=== PATIENT | male | born 1960 | race Caucasian/White ===

== ENCOUNTER → 2023-01-25 | Outpatient (CLI) | payer BC ==
[2023-01-25 21:37] LABS: Basophils # (A) 0.08 X 10*3/uL (0.00-0.10); Basophils % (A) 0.8 %; Eosinophils # (A) 0.25 X 10*3/uL (0.04-0.35); Eosinophils % (A) 2.5 %; HGB 14.3 g/dL (13.0-17.0); Immature Grans, Automated 0.9 %; Lymphocytes # (A) 1.92 X 10*3/uL (0.90-5.00); Lymphocytes % (A) 19.4 %; MCH 29.9 pg (27.0-32.0); MCHC 31.1 g/dL (32.0-37.0); MCV 96.2 fL (80.0-97.0); Mean Platelet Volume 11.5 fL (9.5-12.2); Monocytes # (A) 0.88 X 10*3/uL (0.20-1.00); Monocytes % (A) 8.9 %; NRBC Per 100 WBC 0 /100 WBCS (0.0-0.0); Neutrophils % (A) 67.5 %; Platelet Count 223 X 10*3/uL (140-440); RBC 4.78 X 10*6/uL (4.40-5.60); RDW 14.4 % (11.5-14.5); WBC 9.92 X 10*3/uL (4.50-10.00)
[2023-01-26 00:43] LABS: % Iron Saturation 27.1 (15.00-50.00); Phosphorus 2.8 mg/dL (2.4-5.1); Uric Acid 4.7 mg/dL (3.7-8.7)
[2023-01-26 01:54] LABS: African American GFR (CKD) 24.7 (60.0-200.0); Anion Gap 12.8 mmol/L (10.00-18.00); BUN/Creat Ratio 12.23 Ratio (12.00-20.00); Blood Urea Nitrogen 36.7 mg/dL (9.0-27.0); Calcium 9.1 mg/dL (8.7-10.3); Carbon Dioxide 12.2 mmol/L (20.0-27.5); Non-African American GFR(CKD) 21.3 (60.0-200.0); Potassium 4.5 mmol/L (3.5-5.5)
[2023-01-26 05:35] LABS: Urine Creatinine 45.1 mg/dL (39.0-259.0)
== END | disposition home or self-care (01) ==
LOC: LABWHC1 13:54
PROVIDERS: ATTEND Internal Medicine
DX: N18.4 Chronic kidney disease, stage 4 (severe) (principal); N25.81 Secondary hyperparathyroidism of renal origin
CPT/HCPCS: 36415; 80048; 82043; 82306; 82570; 82728; 83540; 83550; 83735; 83970; 84100; 84550; 85025

== ENCOUNTER → 2024-07-03 | Outpatient (CLI) | payer OTHER ==
--- NOTE | 2024-07-03 12:45 | XR ---
EXAMINATION TYPE: XR KUB DATE OF EXAM: 07/03/2024 COMPARISON: None HISTORY: Dysuria and intercostal pain left flank pain x4 months TECHNIQUE: AP abdomen FINDINGS: There is a 0.7 cm calcification at the inferior pole left kidney. Correlate for renal stone Normal colonic bowel gas is present. Psoas margins are normal. There is a density in the right lower quadrant measuring 1.1 cm. An appendicolith is not excluded. This could be within fecal debris. Osseous structures are normal. No organomegaly is evident. IMPRESSION: 1. Suspected 0.7 cm inferior pole left renal stone. 2. Appendicolith is not excluded. [facility], , 07/03/2024 12:43 PM
--- NOTE | 2024-07-03 15:19 | XR ---
EXAMINATION TYPE: XR ribs LT w pa chest xray DATE OF EXAM: 07/03/2024 COMPARISON: None HISTORY: Left flank pain, feeling of lump TECHNIQUE: Left RIBS examined in 2 projections. Exam supplemented with AP chest FINDINGS: No acute displaced rib fractures evident. No bony expansion is identified. No suspicious marisa ng findings as visualized study. Heart size is normal. Pulmonary vasculature is normal. Lungs appear clear. No pneumothorax is evident . IMPRESSION: 1. Unremarkable left rib series. 2. No suspicious abnormality to correlate with the patient's palpable finding. [facility], , 07/03/2024 3:17 PM
== END | disposition home or self-care (01) ==
LOC: RADXRYALE 10:36
PROVIDERS: ATTEND Internal Medicine
DX: R30.0 Dysuria (principal); R07.82 Intercostal pain
CPT/HCPCS: 74018

== ENCOUNTER → 2024-07-31 | Outpatient (CLI) | payer OTHER ==
[2024-07-31 15:51] LABS: Basophils # (A) 0.09 X 10*3/uL (0.00-0.10); Basophils % (A) 0.8 %; Eosinophils # (A) 0.37 X 10*3/uL (0.04-0.35); Eosinophils % (A) 3.3 %; HCT 46.4 % (39.6-50.0); HGB 15.3 g/dL (13.0-17.0); Lymphocytes # (A) 2.43 X 10*3/uL (0.90-5.00); Lymphocytes % (A) 21.5 %; MCH 30.1 pg (27.0-32.0); MCV 91.3 FL (80.0-97.0); Mean Platelet Volume 11.5 FL (9.5-12.2); Monocytes # (A) 1.01 X 10*3/uL (0.20-1.00); Monocytes % (A) 8.9 %; NRBC Per 100 WBC 0 X 10*3/uL (0.00-0.01); Neutrophils # (A) 7.34 X 10*3/uL (1.80-7.70); Neutrophils % (A) 64.8 %; Platelet Count 255 X 10*3/uL (140-440); RBC 5.08 X 10*6/uL (4.40-5.60); WBC 11.32 X 10*3/uL (4.50-10.00)
[2024-07-31 16:29] LABS: Appearance,Urine Clear (Clear); Bilirubin,Urine Negative (Negative); Blood,Urine Negative (Negative); Color,Urine Yellow (Yellow); Ketones,Urine Negative (Negative); Nitrite,Urine Positive (Negative); Specific Gravity,Urine 1.009 (1.001-1.030); Urobilinogen,Urine 0.2 E.U./DL
[2024-07-31 16:35] LABS: Bacteria,Urine 3+ (None Seen)
[2024-07-31 17:43] LABS: BUN/Creat Ratio 16.93 Ratio (12.00-20.00); Blood Urea Nitrogen 45.7 mg/dL (9.0-27.0); Chloride 108 mmol/L (96-109); Chol/HDL Ratio 3.11 Ratio; Glucose 173 mg/dL (70-110); LDL Cholesterol,Calculated 94.5 mg/dL (0.0-131.0); Potassium 4.8 mmol/L (3.5-5.5); Sodium 135 mmol/L (135-145)
[2024-07-31 17:44] LABS: ALT 35 U/L (10-49); AST 22 U/L (14-35); Albumin 4.2 g/dL (3.8-4.9); Alkaline Phosphatase 79 U/L (41-126); Calcium 9.4 mg/dL (8.7-10.3); Globulin 2.8 g/dL (1.6-3.3); Total Bilirubin 0.3 mg/dL (0.3-1.2)
[2024-07-31 18:07] LABS: PSA Annual Screen <0.014 ng/mL (0.000-4.000)
[2024-07-31 23:37] LABS: Urine Creatinine 43.8 mg/dL (39.0-259.0)
== END | disposition home or self-care (01) ==
LOC: LABWHC1 11:00
PROVIDERS: ATTEND Internal Medicine
CPT/HCPCS: 36415; 80053; 80061; 81001; 82043; 82306; 82570; 83036; 84443; 85025; 87086